=== PATIENT | female | born 1945 | race Caucasian/White ===

== ENCOUNTER 2023-08-30 10:33 | Day surgery (SDC) | payer OTHER, SELFPAY ==
--- NOTE | 2023-08-29 15:31 | HP_ITS ---
DATE OF SERVICE: 08/30/2023 HISTORY OF PRESENT ILLNESS: The patient is a pleasant 78-year-old woman seen today for colonoscopy. She has had a change in her bowel habits, which has not responded to MiraLAX and increased fiber intake. The symptoms have included diarrhea, alternating with constipation as well as occasional rectal bleeding. She had previously undergone colonoscopy in 2019 with removal of a tubular adenoma. PAST MEDICAL HISTORY: 1. Colon polyps as above, and history of focal colitis previously, not treated. 2. Attention deficit disorder. 3. Insomnia. 4. Hypertension. 5. Degenerative joint disease. 6. Allergies. 7. Sinus problems and ear infections. 8. Mooney's esophagus, previously with low-grade dysplasia, last endoscopy on 04/12 showed no dysplasia or intestinal metaplasia. CURRENT MEDICATIONS: Her current medication list is reviewed in the EMR ALLERGIES: AUGMENTIN, DEMEROL. FAMILY HISTORY: This was reviewed with the patient and is noncontributory. SOCIAL HISTORY: There is no current tobacco, alcohol, or substance abuse. Her daughter in May. REVIEW OF SYSTEMS: SKIN: No pruritus. HEENT: Negative. CARDIOPULMONARY: No shortness of breath or chest pain. GASTROINTESTINAL: As above. She has not been eating well. GENITOURINARY: Negative. NEUROPSYCHIATRIC: Negative. PHYSICAL EXAMINATION: GENERAL: Shows a pleasant female, in no acute distress. Physical examination will be updated at the time of her procedure. IMPRESSION: Change in bowel movements and rectal bleeding. Plan: Colonoscopy. Risks and benefits of the procedure have been discussed with the patient who understands and agrees to proceed. MD GARY Lopez/AAKASH / [id number] PEDRITO
[2023-08-30 13:14] VITALS: BMI 30.3
[2023-08-30 13:31] VITALS: BP 152/85; PULSE 81; RESP 16; TEMP 37.2; O2SAT 99
--- NOTE | 2023-08-30 14:04 | HO.ANESPROP2 ---
HPI - Anesthesia Eval Consult details Narrative: for colonoscopy [facility] Past Medical History Medical History Stage 3 chronic kidney disease FH: total knee replacement Barretts esophagus Ear infection Frequent sinus infections DJD (degenerative joint disease) Attention deficit disorder Insomnia HTN (hypertension) Family History Family history of problems with anesthesia: No Surgical History Surgical History History of bladder surgery H/O wrist surgery History of Problems with Anesthesia: No Social History Social History Patient Tobacco Use Status: Never used Tobacco Use of substances other than those prescribed or required for medical reasons: No Are you DNR?: No Advance Directives: No Advance Directives Information Provided: Yes Meds Allergies Allergy/AdvReac Type Severity Reaction Status Date / Time amoxicillin [From Augmentin] Allergy Itching Verified 08/30/23 13:12 clavulanic acid Allergy Itching Verified 08/30/23 13:12 [From Augmentin] meperidine [From Demerol] Allergy Nausea and Verified 08/30/23 13:12 Vomiting Active Medications: Current Medications Lactated Ringer's (Lr) 1,000 mls @ 50 mls/hr IVCONT .Q20H RAMÓN Home Medications ?Medication ?Instructions ?Recorded ?Confirmed ?Last Taken ?Type albuterol sulfate 90 mcg/actuation 2 puff inhalation Q6H 08/30/23 Unknown History aerosol inhaler bupropion HCl 150 mg 24 hr tablet, 150 mg PO DAILY 08/30/23 Unknown History extended release cyanocobalamin (vitamin B-12) 1,000 mcg PO DAILY 08/30/23 Unknown History 1,000 mcg tablet diltiazem HCl 300 mg 300 mg PO DAILY 08/30/23 Unknown History capsule,extended release 24 hr lisinopril 20 mg tablet 20 mg PO DAILY 08/30/23 08/30/23 History pravastatin 40 mg tablet 40 mg PO DAILY 08/30/23 Unknown History Exam Height,Weight and Vital Signs: Height 5 ft 5 in Weight 82.724 kg Last Vital Signs Temp 98.9 F 08/30/23 13:31 Pulse 81 08/30/23 13:31 Resp 16 08/30/23 13:31 BP 152/85 H 08/30/23 13:31 Pulse Ox 99 08/30/23 13:31 O2 Del Method Room Air 08/30/23 13:31 Airway Mallampati Class: III TM Dist: >3cm Neck ROM: Limited Heart: rrr Lungs: cta Assessment and Plan Assessment Anesthesia Assessment: Anesthesia Plan Discussed Final Anesthetic Review Family History of Problems with Anesthesia: No History of Problems with Anesthesia: No NPO: Yes ASA Class: III Final Preanesthetic Review: No Changes in Pt Med Stat, Meds/Allgs Chart Reviewed, Consent Obtained/Reviewed and Anes Risks/Benef Reviewed Patient Risk: Intermediate Procedure Risk: Low Anesthetic Plan Anesthetic Plan: MAC: Disposition: Standard PACU
--- NOTE | 2023-08-30 15:09 | MHC.SHP ---
Pre-Procedural Eval Section A - 24 Hr Update-Section A only Date of Service: 08/30/23 The patient is an INPATIENT: No Changes since office visit: No Cold of Flu in the past 2 weeks, No New Medical Problems, No Changes in Medication and No Patient answered all questions The patient has been examined within 24 hours of the surgical procedure. The History & Physical has been completed within 30 days and I have reviewed it.: Yes Section B - Complete if H&P > 30 days Chief Complaint: Change in bowel habit Allergies: Allergies Allergy/AdvReac Type Severity Reaction Status Date / Time amoxicillin [From Augmentin] Allergy Itching Verified 08/30/23 13:12 clavulanic acid Allergy Itching Verified 08/30/23 13:12 [From Augmentin] meperidine [From Demerol] Allergy Nausea and Verified 08/30/23 13:12 Vomiting Plan I have reviewed the history and physical and performed a pertinent physical examination on my patient. No changes have occurred unless specified. Time Spent With Patient Time: Total time managing care of this patient today ____ minutes.
[2023-08-30 16:05] VITALS: BP 104/54; PULSE 66; RESP 18; TEMP 36.1; O2SAT 98
[2023-08-30 16:20] VITALS: BP 151/80; PULSE 71; RESP 18; TEMP 36.8; O2SAT 97
--- NOTE | 2023-08-30 23:54 | OP_ITS ---
DATE OF SERVICE: 08/30/2023 SURGEON: Darryl Gunn MD INDICATIONS: Change in bowel movements and rectal bleeding. PREOPERATIVE DIAGNOSIS: POSTOPERATIVE DIAGNOSIS: PROCEDURE PERFORMED: Colonoscopy to the terminal ileum with biopsy and snare polypectomy. ESTIMATED BLOOD LOSS: COMPLICATIONS: ANESTHESIA: Monitored anesthesia care. ASSISTANTS: SPECIMENS: DESCRIPTION OF PROCEDURE: A history and physical was performed. The risks and benefits of the procedure were explained to the patient. Informed consent was obtained. The patient was placed in the left lateral decubitus position. A digital rectal exam was performed and was found to be normal. The Olympus pediatric video colonoscope was introduced into the rectum and advanced to the cecum. The cecum was identified by transillumination, palpation, and identification of ileocecal valve. Examination was performed. The scope was removed. She tolerated the procedure well and was returned to the recovery area in stable condition. FINDINGS: The terminal ileum was examined and appeared normal. The visualized colonic mucosa was normal. There was no evidence of colitis. The mucosa showed a single polyp measuring approximately 8 mm. This was located in the sigmoid at 20 cm and removed with a hot snare. The polyp was recovered by suction. Random biopsies were obtained from the rectosigmoid. Retroflexed examination showed hypertrophic anal papillae and small internal hemorrhoids. IMPRESSION: Colon polyp. RECOMMENDATION: 1. Follow up the biopsy results. 2. Symptomatic treatment of hemorrhoids if any further bleeding. MD GARY Lopez/AAKASH / [id number]
== END 2023-08-30 16:37 | disposition home or self-care (01) ==
PROVIDERS: PCP Internal Medicine; Visit Provider Internal Medicine Gastroenterology
PROC: 0DJD8ZZ Inspection of Lower Intestinal Tract, Via Natural or Artificial Opening Endoscopic (ICD-10-PCS; CPT 45378; principal; 2023-08-30 14:30)
DX: Z12.11 Encounter for screening for malignant neoplasm of colon (principal); D12.7 Benign neoplasm of rectosigmoid junction; K64.8 Other hemorrhoids; K62.89 Other specified diseases of anus and rectum; R19.4 Change in bowel habit; Z86.010 Personal history of colon polyps; I12.9 Hypertensive chronic kidney disease with stage 1 through stage 4 chronic kidney disease, or unspecified chronic kidney disease; N18.30 Chronic kidney disease, stage 3 unspecified; Z79.899 Other long term (current) drug therapy
CPT/HCPCS: 45385; 45380; 88305; J2704

== ENCOUNTER 2024-11-12 14:09 | Outpatient (REF) | payer MEDICARE, SELFPAY ==
--- OUTSIDE RECORDS SUMMARY | 2024-11-12 16:49 | XMS_ITS | Encounter Summary ---
Demographics Address [address] [place] [address] Mobile Phone Preferred Language en Marital Status
== END 2024-11-12 14:10 | disposition home or self-care (01) ==
LOC: HO.XRAY 14:09
PROVIDERS: PCP Internal Medicine; Visit Provider Internal Medicine Gastroenterology
DX: R10.13 Epigastric pain (principal)
CPT/HCPCS: 74019

== ENCOUNTER → 2024-11-12 14:42 | Outpatient (BNV) | payer MEDICARE, SELFPAY | PROVIDERS: PCP Internal Medicine; Visit Provider Radiology Diagnostic Radiology | DX: R10.13 Epigastric pain (principal) | CPT/HCPCS: 74019 ==

== ENCOUNTER 2024-12-24 14:48 | Outpatient (REF) | payer MEDICARE, SELFPAY ==
[2024-12-24 15:51] LABS: Hematocrit 42.4 % (37.0-47.0); Hemoglobin 13.4 g/dl (12.0-16.0); Mean Corpuscular HGB Conc 31.6 g/dl (31.0-35.0); Mean Corpuscular Hemoglobin 28.0 pg (27.0-33.0); Mean Corpuscular Volume 88.7 fL (80.0-98.0); NRBC Abs Auto 0.000 X10*3/uL (0.0-0.012); NRBC Pct Auto 0.0 /100WBC (0.0-0.2); Platelet Count 302 X10*3/uL (160-400); Red Blood Count 4.78 X10*6/uL (4.20-5.50); White Blood Count 7.7 X10*3/uL (4.8-10.8)
[2024-12-24 16:40] LABS: Alanine Aminotransferase 10 U/L (0-31); Albumin Level 4.2 g/dL (3.5-5.0); Alkaline Phosphatase 92 U/L (39-117); Aspartate Amino Transferase 18 U/L (5-31); Blood Urea Nitrogen 8 mg/dL (9-16); Estimated Glomerular Filt Rate 56; Lipase 14 U/L (8-78); Total Protein 6.7 g/dL (6.5-8.0)
[2024-12-24 16:57] LABS: Thyroid Stimulating Hormone 1.06 uIU/mL (0.32-4.0)
== END 2024-12-24 14:49 | disposition home or self-care (01) ==
LOC: HO.LAB 14:48
PROVIDERS: PCP Internal Medicine; Visit Provider Internal Medicine Gastroenterology
DX: R10.9 Unspecified abdominal pain (principal); Z13.29 Encounter for screening for other suspected endocrine disorder
CPT/HCPCS: 36415; 80076; 82565; 83690; 84443; 84520; 85027

== ENCOUNTER 2025-01-08 05:06 | Emergency (ER) | payer MEDICARE, SELFPAY ==
--- NOTE | 2025-01-08 | ECG_ITS ---
Test Reason : repeat Blood Pressure : */* mmHG Vent. Rate : 64 BPM Atrial Rate : 64 BPM P-R Int : 188 ms QRS Dur : 82 ms QT Int : 440 ms P-R-T Axes : 2 -13 9 degrees QTcB Int : 453 ms Normal sinus rhythm Normal ECG When compared with ECG of 08-Jan-2025 07:25, QRS axis Shifted right Referred By: Janeth Harris Electronically Signed By: MANUEL SULLIVAN
--- NOTE | ~2025-01-08 | CT_ITS ---
EXAMINATION: CT ABDOMEN AND PELVIS WITH CONTRAST CLINICAL INFORMATION: Abdominal pain and distention. COMPARISON: 10/03/2017. TECHNIQUE: Multidetector volumetric images were obtained from the superior aspect of the liver through the pubic symphysis following administration 85 mL of Omnipaque 350 intravenous contrast. Sagittal and coronal reformatted images were obtained on the technologist's workstation. Oral contrast: No This CT examination was performed using dose optimization techniques as appropriate, variously including the following: *Automated exposure control *Adjustment of mA and/or kV according to patient size (this includes techniques or standardized protocols for targeted exams where dose is matched to indication/reason for exam; i.e. extremities or head) *Use of iterative reconstruction technique FINDINGS: LUNG BASES: Lung bases appear clear bilaterally. There is borderline cardiac enlargement. There is no pericardial effusion. There is a moderate-sized paraesophageal hiatus hernia present. There are no pleural effusions. LIVER, GALLBLADDER, AND BILIARY TREE: The liver is normal in size, shape, and attenuation. No focal hepatic lesion or biliary ductal dilatation is present. The gallbladder is unremarkable with no evidence of radiopaque gallstones, gallbladder wall thickening, or obvious pericholecystic inflammatory changes. PANCREAS: Mild fatty change. No focal lesion or ductal dilatation. No inflammation. SPLEEN: Unremarkable. ADRENAL GLANDS: Unremarkable. KIDNEYS AND URETERS: The kidneys are normal in size, shape, and attenuation. No hydronephrosis, hydroureter, or calculi seen. No perinephric stranding. There is a right extrarenal pelvis noted. BLADDER: Unremarkable. GASTROINTESTINAL TRACT: There is severe sigmoid diverticulosis. There is no CT evidence of acute diverticulitis. Moderate diverticulosis of the descending colon. Normal appendix visualized. The small bowel is normal in caliber course. Moderate sized paraesophageal hiatus hernia. The stomach is otherwise decompressed/normal. Normal duodenal sweep. No rectal abnormality is detected. PERITONEUM/RETROPERITONEUM: No free air or ascites. ABDOMINAL WALL: No significant hernia is appreciated. LYMPH NODES: No abnormal lymphadenopathy present. VASCULAR: There is heavy atheromatous calcification of the aorta and iliac arteries. There is no aneurysm. PELVIC VISCERA: There has been a hysterectomy. There are no adnexal masses. OSSEOUS STRUCTURES: There is no suspicious lytic or blastic bone lesion. There are moderate degenerative changes throughout the spine. There is a mild left convex thoracolumbar scoliosis. There are mild to moderate hip joint degenerative changes. CT/CT abdomen pelvis w IV con IMPRESSION: 1. No acute findings in the abdomen or pelvis. 2. Severe sigmoid diverticulosis without evidence of diverticulitis. 3. Moderate sized paraesophageal hiatus hernia. 4. Additional ancillary findings as discussed in the body of the report. Electronically signed by: Lit Kim MD 01/08/2025 08:40 AM [facility] [place]
[2025-01-08 05:12] VITALS: BP 170/80; PULSE 79; RESP 18; TEMP 35.8; O2SAT 97; BMI 33.3
[2025-01-08 05:37] LABS: MANUAL DIFF FLAG NO
[2025-01-08 05:40] LABS: Hematocrit 40.5 % (37.0-47.0); Hemoglobin 13.0 g/dl (12.0-16.0); Imm Gran Abs Auto 0.01 X10*3/uL (0.00-0.03); Imm Gran Pct Auto 0.2 % (0.0-0.4); Lymphocytes Absolute Auto 2.0 X10*3/uL (1.2-4.9); Mean Corpuscular HGB Conc 32.1 g/dl (31.0-35.0); Mean Corpuscular Hemoglobin 28.4 pg (27.0-33.0); Mean Corpuscular Volume 88.4 fL (80.0-98.0); NRBC Abs Auto 0.000 X10*3/uL (0.0-0.012); NRBC Pct Auto 0.0 /100WBC (0.0-0.2); Platelet Count 255 X10*3/uL (160-400); Red Blood Count 4.58 X10*6/uL (4.20-5.50); White Blood Count 6.2 X10*3/uL (4.8-10.8)
[2025-01-08 05:54] LABS: Alanine Aminotransferase 9 U/L (0-31); Albumin Level 4.2 g/dL (3.5-5.0); Alkaline Phosphatase 87 U/L (39-117); Anion Gap 12 (12-20); Aspartate Amino Transferase 19 U/L (5-31); Blood Urea Nitrogen 9 mg/dL (9-16); Calcium 9.1 mg/dL (8.4-10.2); Carbon Dioxide 25 mmol/L (22-29); Chloride 108 mmol/L (96-108); Creatinine Clr Calc Pharmacy 39.1; Estimated Glomerular Filt Rate 53; Lipase 12 U/L (8-78); Potassium 4.6 mmol/L (3.3-5.1); Sodium 140 mmol/L (135-145); Total Protein 6.7 g/dL (6.5-8.0)
--- NOTE | 2025-01-08 06:05 | ED_ITS ---
HPI - Abdominal Pain General Chief Complaint: Abdominal Pain Stated Complaint: lower abd pain Time Seen by Provider: 01/08/25 05:57 Source: patient and old records reviewed Mode of arrival: ambulatory Limitations: no limitations History of Present Illness ED Provider: BETINA STEIN narrative: 79-year-old female with past medical history of depression, hypertension, hyperlipidemia who follows with Dr. Gunn for let her family member tells me is IBS. She had a colonoscopy a few years ago. She does not really any abnormalities to me. She notes for the last few weeks she has had increased heartburn, abdominal distention, inability to have bowel movement but is passing flatus. She has tried MiraLax with little relief. She states she passed very small stools last night. She spoke to Dr. Gunn and he planned a CT scan on January 14 but she feels she can not wait. She denies any GI bleed symptoms or fever MD elicited complaint: abdominal pain Pertinent past history: constipation Onset (ago): week(s) Pain Consistency: intermittent Location: epigastric and periumbilical Severity: moderate Quality: aching Radiation: none Migration to: no migration Exacerbating factors: eating Relieving factors: nothing Context: other Associated symptoms: constipation Treatments prior to arrival: other Related Data Home Medications ?Medication ?Instructions ?Recorded ?Confirmed albuterol sulfate 90 mcg/actuation 2 puff inhalation Q 6H 08/30/23 aerosol inhaler bupropion HCl 150 mg 24 hr tablet, 150 mg PO DAILY 11/14 extended release cyanocobalamin (vitamin B-12) 1,000 mcg PO DAILY 08/29 1,000 mcg tablet diltiazem HCl 300 mg 300 mg PO DAILY 08/30/23 capsule,extended release 24 hr lisinopril 20 mg tablet 20 mg PO DAILY 08/30/23 pravastatin 40 mg tablet 40 mg PO DAILY 08/30/23 Previous Rx's ?Medication ?Instructions ?Recorded famotidine 20 mg tablet (Pepcid) 20 mg PO DAILY abdomi nal 01/08/25 discomfort #30 tabs lactulose 10 gram/15 mL oral 20 g (30 mL) PO DAILY PRN 01/08/25 solution constipation #1,200 mL sennosides 8.6 mg capsule (senna) 8.6 mg PO BEDTIME [place] constipation 01/08/25 #30 caps Allergies Allergy/AdvReac Type Severity Reaction Status Date / Time amoxicillin (From Augmentin) Allergy Itching Verified 01/08/25 05:13 clavulanic acid (From Allergy Itching Verified 01/08/25 05:13 Augmentin) meperidine (From Demerol) Allergy Nausea and Verified 01/08/25 05:13 Vomiting Review of Systems Review of Systems Constitutional : No Weight loss, No Fever, No Chills ENT/Mouth : No sore throat, No Rhinorrhea Eyes: No Swelling, No Redness Cardiovascular : No Chest Pain, No SOB, NoEdema Respiratory : No Cough, No Sputum, No Wheezing Gastrointestinal : No Nausea, no Vomiting, no Diarrhea, positive abdominal Pain, No Hematochezia, No Melena, positive constipation Genitourinary : No Dysuria, No Urinary Frequency, No Hematuria, No Urgency Musculoskeletal : No joint pain, No Myalgias, No Joint Swelling Skin : No Skin Lesions, No rash All other systems reviewed and are negative. [facility] Past Medical History Attestation statement: The following information was validated with the patient. Source: old records reviewed Medical History Stage 3 chronic kidney disease FH: total knee replacement Barretts esophagus Ear infection Frequent sinus infections DJD (degenerative joint disease) Attention deficit disorder Insomnia HTN (hypertension) Surgical History History of bladder surgery H/O wrist surgery Social History Social History Patient Tobacco Use Status: Never used Tobacco Smoked in Last 30 Days: No Use of substances other than those prescribed or required for medical reasons: No Advance Directives: No Advance Directives Information Provided: Yes Do you have a plan to hurt others: No Plan Physical Exam ED Vital Signs: Vital Signs - 24 hr 01/08/25 05:12 01/08/25 07:34 01/08/25 08:51 Temperature 96.5 F L 97.7 F Pulse Rate 79 60 71 Respiratory Rate 18 15 14 Blood Pressure 170/80 H 164/75 H Pulse Oximetry 97 97 97 Oxygen Delivery Method Room Air Room Air Room Air BMI result Body Mass Index 33.3 Appearance: Alert. Oriented X3. No acute distress. Eyes: Pupils equal, round and reactive to light. ENT: Pharynx normal. Neck: Normal inspection. Neck supple. CVS: Normal heart rate and rhythm. Pulses normal. Respiratory: No respiratory distress. Breath sounds normal. Abdomen: Soft with mild distention, no rebound, no guarding Skin: Skin warm and dry. Normal skin color. Normal skin turgor. Extremities: No lower extremity edema. Neuro: Oriented X 3. No motor deficit. No sensory deficit. CN2-12 intact Medical Decision Making Medical Decision Making [facility] Narrative: 79-year-old female with past medical history of depression, hypertension, hyperlipidemia here with worsening weeks of abdominal distention, constipation, increasing pain, reports some heartburn. At this time given her age and complaints as well as her prior outpatient follow up with GI I am going to obtain urine, labs, CT scan to look for obstruction, obstipation, mass, inflammatory reaction. I am ordering Pepcid as well for her burn. I am obtaining EKG. 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 01/08/25 05:33 01/08/25 05:33 Labs: Lab Results 01/08/25 01/08/25 Range/Units 05:33 06:12 WBC 6.2 (4.8-10.8) X10*3/uL RBC 4.58 (4.20-5.50) X10*6/uL Hgb 13.0 (12.0-16.0) g/dl Hct 40.5 (37.0-47.0) % MCV 88.4 (80.0-98.0) fL MCH 28.4 (27.0-33.0) pg MCHC 32.1 (31.0-35.0) g/dl RDW 12.7 (11.0-16.0) % Plt Count 255 (160-400) X10*3/uL MPV 9.6 (9.4-12.3) fL Immature Gran % (Auto) 0.2 (0.0-0.4) % Neut % (Auto) 55.6 (45-73) % Lymph % (Auto) 31.8 (20-40) % [place]ne % (Auto) 10.4 (2-11) % Eos % (Auto) 1.5 (0-4) % Baso % (Auto) 0.5 (0-2) % Lymph # (Auto) 2.0 (1.2-4.9) X10*3/uL [place] # (Auto) 0.6 (0.1-1.2) X10*3/uL Eos # (Auto) 0.1 (0.0-0.4) X10*3/uL Baso # (Auto) 0.0 (0.0-0.2) X10*3/uL Abs Immat Gran (auto) 0.01 (0.00-0.03) X10*3/uL Absolute Neuts (auto) 3.4 (2.0-8.3) x10*3/uL Absolute Nucleated RBC 0.000 (0.0-0.012) X10*3/uL Nucleated RBC % (auto) 0.0 (0.0-0.2) /100WBC Sodium 140 (135-145) mmol/L Potassium 4.6 (3.3-5.1) mmol/L Chloride 108 (96-108) mmol/L Carbon Dioxide 25 (22-29) mmol/L Anion Gap 12 (12-20) BUN 9 (9-16) mg/dL Creatinine 1.01 (0.5-1.4) mg/dL Estim Creat Clear Calc 39.1 Estimated GFR 53 Random Glucose 107 (60-115) mg/dL Calcium 9.1 (8.4-10.2) mg/dL Total Bilirubin 0.6 (0.0-1.0) mg/dL AST 19 (5-31) U/L ALT 9 (0-31) U/L Alkaline Phosphatase 87 (39-117) U/L Total Protein 6.7 (6.5-8.0) g/dL Albumin 4.2 (3.5-5.0) g/dL Lipase 12 (8-78) U/L Urine Color Yellow Urine Appearance Clear Urine pH 7.0 (5.0-9.0) Ur Specific [place] <= 1.005 (1.005-1.025) Urine Protein Negative (Neg-Trace) mg/dL Urine Glucose (UA) Negative (Negative) mg/dL Urine Ketones Negative (Negative) mg/dL Urine Blood Negative (Negative) Urine Nitrite Negative (Negative) Ur Leukocyte Esterase Negative (Negative) Independent Interpretation I performed an independent interpretation of an: EKG and CT Scan (No obstruction but paraesophageal hernia) Interpretation: Rate: 64 Rhythm: Normal sinus rhythm [place]: Left Normal P waves. Normal FERNANDO. Normal QRS complex. ST T wave : No ST-elevation, inverted T-wave in lead 3 but otherwise normal qTC: 453 prior studies: No acute ischemia The study has been interpreted contemporaneously by me. . Radiology Impression Discussion of test interpretation with radiology: I have reviewed the radiologist's reading. Independent Historian Clinical information obtained from an independent historian. History obtained from or confirmed by: Friend External Record Review External record reviewed: Outpatient record and Prior outpatient labs Prescription Management I considered prescription management with: Other Medications Administered Discontinued Medications Generic Name Dose Route Start Last Admin Trade Name Freq PRN Reason Stop Dose Admin Famotidine 20 mg 01/08/25 06:29 01/08/25 06:55 Famotidine/Pf 20 Mg/2 Ml Vial IVPUSH 01/08/25 06:30 20 mg ONCE ONE Administration Iohexol 85 ml 01/08/25 08:16 01/08/25 08:16 Iohexol 350 Mg/Ml 100 Ml Infus..Btl IV 01/08/25 08:17 85 ml ONCE ONE Administration Discharge Plan Discharge Clinical Impression: Abdominal pain Qualifiers: Abdominal location: generalized Qualified Code(s): R10.84 - Generalized abdominal pain Constipation Qualifiers: Constipation type: unspecified constipation type Qualified Code(s): K59.00 - Constipation, unspecified Patient Disposition: Home, Self-Care Instructions: Constipation (DC), Abdominal Pain (ED) Additional Instructions: At this time your labs and urine studies were normal and reassuring this included your electrolytes, blood counts, kidney function, liver tests, pancreas Your CT scan did not show any acute pathology or obstruction It does show diverticular disease but no active infection It shows a paraesophageal hernia that can be managed by Dr. Gunn I am going to start you on any antacid to see if this improves her symptoms Please do not take any additional medications other than what is prescribed Return for any worsening symptoms or concerns and please make sure you call your GI doctor after discharge FINDINGS: LUNG BASES: Lung bases appear clear bilaterally. There is borderline cardiac enlargement. There is no pericardial effusion. There is a moderate-sized paraesophageal hiatus hernia present. There are no pleural effusions. LIVER, GALLBLADDER, AND BILIARY TREE: The liver is normal in size, shape, and attenuation. No focal hepatic lesion or biliary ductal dilatation is present. The gallbladder is unremarkable with no evidence of radiopaque gallstones, gallbladder wall thickening, or obvious pericholecystic inflammatory changes. PANCREAS: Mild fatty change. No focal lesion or ductal dilatation. No inflammation. SPLEEN: Unremarkable. ADRENAL GLANDS: Unremarkable. KIDNEYS AND URETERS: The kidneys are normal in size, shape, and attenuation. No hydronephrosis, hydroureter, or calculi seen. No perinephric stranding. There is a right extrarenal pelvis noted. BLADDER: Unremarkable. GASTROINTESTINAL TRACT: There is severe sigmoid diverticulosis. There is no CT evidence of acute diverticulitis. Moderate diverticulosis of the descending colon. Normal appendix visualized. The small bowel is normal in caliber course. Moderate sized paraesophageal hiatus hernia. The stomach is otherwise decompressed/normal. Normal duodenal sweep. No rectal abnormality is detected. PERITONEUM/RETROPERITONEUM: No free air or ascites. ABDOMINAL WALL: No significant hernia is appreciated. LYMPH NODES: No abnormal lymphadenopathy present. VASCULAR: There is heavy atheromatous calcification of the aorta and iliac arteries. There is no aneurysm. PELVIC VISCERA: There has been a hysterectomy. There are no adnexal masses. OSSEOUS STRUCTURES: There is no suspicious lytic or blastic bone lesion. There are moderate degenerative changes throughout the spine. There is a mild left convex thoracolumbar scoliosis. There are mild to moderate hip joint degenerative changes. CT/CT abdomen pelvis w IV con IMPRESSION: 1. No acute findings in the abdomen or pelvis. 2. Severe sigmoid diverticulosis without evidence of diverticulitis. 3. Moderate sized paraesophageal hiatus hernia. 4. Additional ancillary findings as discussed in the body of the report. Prescriptions: New famotidine [Pepcid] 20 mg tablet 20 mg PO DAILY Qty: 30 2RF senna 8.6 mg capsule 8.6 mg PO BEDTIME PRN (Reason: constipation) Qty: 30 0RF lactulose 10 gram/15 mL solution 20 g PO DAILY PRN (Reason: constipation) Qty: 1200 0RF No Action pravastatin 40 mg tablet 40 mg PO DAILY lisinopril 20 mg tablet 20 mg PO DAILY cyanocobalamin (vitamin B-12) 1,000 mcg tablet 1,000 mcg PO DAILY diltiazem HCl 300 mg capsule,extended release 24hr 300 mg PO DAILY albuterol sulfate 90 mcg/actuation HFA aerosol inhaler 2 puff inhalation Q6H bupropion HCl 150 mg tablet extended release 24 hr 150 mg PO DAILY Print Language: Vietnamese
[2025-01-08 06:17] LABS: Appearance Urine Clear; Glucose Urine UA Negative (Negative); PH 7.0 (5.0-9.0); Specific Gravity - Urine <= 1.005 (1.005-1.025)
--- NOTE | 2025-01-08 07:13 | ECG_ITS ---
Test Reason : abdominal pain Blood Pressure : */* mmHG Vent. Rate : 61 BPM Atrial Rate : 61 BPM P-R Int : 196 ms QRS Dur : 80 ms QT Int : 448 ms P-R-T Axes : * 191 171 degrees QTcB Int : 450 ms Normal sinus rhythm Right superior axis deviation Nonspecific ST and T wave abnormality Abnormal ECG No previous ECGs available Referred By: Janeth Harris Electronically Signed By: MANUEL SULLIVAN
[2025-01-08 07:34] VITALS: BP 164/75; PULSE 60; RESP 15; TEMP 36.5; O2SAT 97
--- NOTE | 2025-01-08 07:54 | PC.NURSE ---
assumed care of pt at 0645. pt a&ox4. vss and up to date. nsr w/ frequent PVCs. 20gIV in the right AC - patent/intact. pt presents to the ED c/o lower abd pain w/ associated distension/constipation. attempted to utilize miralax w/o relief. scheduled for CT w/ PCP x the end of december but feels as if sx are increasing and are unable to wait. pt denies any nausea/vomiting/diarrhea/fevers/chills. ekg obtained. pt pending CT to be completed. otherwise on RA w/o difficulty. no sob/wob noted. respirations even/unlabored. friend bedside for support. plan of care ongoing. call sanchez placed within reach.
--- NOTE | 2025-01-08 08:13 | PC.NURSE ---
pt to CT at this time.
[2025-01-08] MEDS: iohexoL 350 MG/ML 100 ML INFUS..BTL 85 ML IV (08:16)
[2025-01-08 08:51] VITALS: PULSE 71; RESP 14; O2SAT 97
[2025-01-08 08:55] VITALS: BP 175/83; PULSE 68; RESP 18; TEMP 36.4; O2SAT 98
[2025-01-08 08:56] VITALS: BP 175/83; PULSE 68; RESP 18; TEMP 36.4; O2SAT 98
== END 2025-01-08 09:06 | disposition home or self-care (01) ==
PROVIDERS: Emergency Provider Emergency Medicine; PCP Internal Medicine
DX: R10.84 Generalized abdominal pain (principal); K59.00 Constipation, unspecified; I10 Essential (primary) hypertension; Z88.0 Allergy status to penicillin; Z88.5 Allergy status to narcotic agent
CPT/HCPCS: 36415; 74177; 80053; 81003; 83690; 85025; 93005; 96374; 99285; J1308; Q9967

== ENCOUNTER → 2025-01-08 06:29 | Outpatient (BNV) | payer MEDICARE, SELFPAY | PROVIDERS: Emergency Provider Emergency Medicine; PCP Internal Medicine; Visit Provider Radiology Diagnostic Radiology | DX: K57.30 Diverticulosis of large intestine without perforation or abscess without bleeding (principal); K44.9 Diaphragmatic hernia without obstruction or gangrene | CPT/HCPCS: 74177 ==

== ENCOUNTER → 2025-01-08 07:13 | Outpatient (BNV) | payer MEDICARE, SELFPAY | PROVIDERS: Emergency Provider Emergency Medicine; PCP Internal Medicine; Visit Provider Internal Medicine | DX: R94.31 Abnormal electrocardiogram [ECG] [EKG] (principal); R10.9 Unspecified abdominal pain; Z13.6 Encounter for screening for cardiovascular disorders | CPT/HCPCS: 93010 ==